=== PATIENT | female | born 1940 | race Two or more races ===

== ENCOUNTER 2017-07-01 20:45 | Inpatient (IN) | payer MEDICARE, MEDICAID ==
[~2017-07-01] VITALS: Ht 157.5 cm; Wt 79.2 kg
[2017-07-01] MEDS ORDERED: OMEP-110 PO (21:19)
[2017-07-01] MEDS ORDERED: ATEN25TA PO (21:19)
[2017-07-01] MEDS ORDERED: HYDR12.53 PO (21:19)
[2017-07-01] MEDS ORDERED: SIMV20TA3 PO (21:19)
[2017-07-01] MEDS ORDERED: LISI-167 PO (21:19)
[2017-07-01] MEDS ORDERED: APIX5TAB PO (21:19)
[2017-07-01] MEDS ORDERED: SODIUM CHLORIDE FLUSH 10ML SYR IVF ONE (21:30)
[2017-07-01] MEDS ORDERED: ONDANSETRON ODT 4 MG ONE (21:33)
[2017-07-01 21:35] LABS: MEAN CORPUSCULAR HGB CONC 32.9 g/dL (32.4-35.8); MEAN CORPUSCULAR VOLUME 91.4 fL (80-100); MEAN PLATELET VOLUME 8.8 fL (7.4-10.4); PLATELET COUNT 315 x10^3/uL (130-400)
[2017-07-01 21:40] LABS: INTERNATIONAL NORMALIZED RATIO 1.05 (0.93-1.1); PROTHROMBIN TIME 10.8 Seconds (9.6-11.5)
[2017-07-01 21:43] LABS: ALANINE AMINOTRANSFERASE 27 U/L (12-78); ALBUMIN 3.9 g/dL (3.4-5.0); ANION GAP 10 mmol/L (5-15); CALCIUM 8.6 mg/dL (8.5-10.1); CHLORIDE 100 mmol/L (98-107); CREATININE 0.86 mg/dL (0.55-1.02)
[2017-07-01 21:47] LABS: BASOPHILS # (AUTO) 0.13 x10^3/uL (0-0.1); BASOPHILS % (AUTO) 1 % (0-1); EOSINOPHILS # (AUTO) 0.23 x10^3/uL (0-0.4); EOSINOPHILS % (AUTO) 1 % (1-7); LYMPHOCYTES # (AUTO) 3.48 x10^3/uL (1-3.4); LYMPHOCYTES % (AUTO) 16 % (22-44); MD SCAN; MONOCYTES # (AUTO) 1.38 x10^3/uL (0.2-0.8); MONOCYTES % (AUTO) 6 % (2-9); NEUTROPHILS # (AUTO) 17.15 x10^3/uL (1.8-6.8); NEUTROPHILS % (AUTO) 77 % (42-75)
[2017-07-01] MEDS ORDERED: LABETALOL 5MG/ML, 20ML ONE (21:47)
[2017-07-01 21:48] LABS: ALKALINE PHOSPHATASE 102 U/L (45-117); BILIRUBIN,TOTAL 0.8 mg/dL (0.2-1.0); TOTAL PROTEIN 8.5 g/dL (6.4-8.2); TROPONIN I < 0.015 ng/mL (0.000-0.045)
[2017-07-01] MEDS ORDERED: ONDANSETRON 2MG/ML, 2ML IVPush ONE (22:00)
[2017-07-01] MEDS ORDERED: LABETALOL 5MG/ML, 20ML IVPush ONE (22:00)
[2017-07-01] MEDS ORDERED: ONDANSETRON ODT 4 MG PO ONE (22:00)
[2017-07-01] MEDS ORDERED: OMNIPAQUE 350 MG/ML, 75ML BOTTLE ONE (22:26)
[2017-07-01] MEDS ORDERED: ACETAMINOPHEN 325 MG TABLET ONE (23:19)
[2017-07-01] MEDS ORDERED: ACETAMINOPHEN 325 MG TABLET PO ONE (23:30)
[2017-07-02] MEDS: SIMVASTATIN 20 MG TABLET PO SCH ×2 (00:30→19:48)
[2017-07-02 01:02] LABS: MICROSCOPIC INDICATED
[2017-07-02 01:13] LABS: CULTURE INDICATED? NO
[2017-07-02] MEDS: HYDROCHLOROTHIAZIDE 12.5 MG CAPSULE PO SCH (09:00)
[2017-07-02] MEDS: OMEPRAZOLE 20 MG CAPSULE.DR PO SCH (09:00)
[2017-07-02] MEDS ORDERED: APIXABAN 5 MG TABLET PO SCH (09:00)
[2017-07-02 09:56] LABS: MEAN CORPUSCULAR HGB CONC 32.9 g/dL (32.4-35.8); MEAN CORPUSCULAR VOLUME 91.2 fL (80-100); MEAN PLATELET VOLUME 8.2 fL (7.4-10.4); PLATELET COUNT 283 x10^3/uL (130-400); RED BLOOD COUNT 4.96 x10^6/uL (3.82-5.3); RED CELL DISTRIBUTION WIDTH 14.4 % (9.6-15.2)
[2017-07-02] MEDS ORDERED: ONDANSETRON ODT 4 MG PO PRN (10:00)
[2017-07-02 10:07] LABS: ANION GAP 8 mmol/L (5-15); CALCIUM 8.1 mg/dL (8.5-10.1); CHLORIDE 100 mmol/L (98-107)
[2017-07-02 10:12] LABS: CREATININE 1.07 mg/dL (0.55-1.02); TROPONIN I < 0.015 ng/mL (0.000-0.045)
[2017-07-02 10:18] LABS: BASOPHILS % (AUTO) 1 % (0-1); EOSINOPHILS % (AUTO) 0 % (1-7); LYMPHOCYTES # (AUTO) 0.62 x10^3/uL (1-3.4); LYMPHOCYTES % (AUTO) 4 % (22-44); MD SCAN; MONOCYTES # (AUTO) 0.43 x10^3/uL (0.2-0.8); MONOCYTES % (AUTO) 3 % (2-9); NEUTROPHILS # (AUTO) 13.67 x10^3/uL (1.8-6.8); NEUTROPHILS % (AUTO) 92 % (42-75)
[2017-07-02 10:30] VITALS: BP 123/78
[2017-07-02] MEDS ORDERED: GADOBUTROL 7.5 MMOL/7.5 ML PFS ONE (11:45)
[2017-07-02] MEDS: LISINOPRIL 10 MG TABLET PO SCH (14:00)
[2017-07-02] MEDS: ATENOLOL 25 MG TABLET PO SCH (14:00)
[2017-07-02 16:01] LABS: TROPONIN I < 0.015 ng/mL (0.000-0.045)
[2017-07-02] MEDS: NS + 20MEQ KCL 1,000 ML IV SCH (20:43)
[2017-07-02] MEDS: SODIUM CHLORIDE FLUSH 10ML SYR IVF SCH (20:44)
[2017-07-02] MEDS ORDERED: MIDAZOLAM 1 MG/ML, 5ML ONE (21:00)
[2017-07-02] MEDS ORDERED: SUCCINYLCHOLINE 20 MG/ML, 10ML ONE (21:00)
[2017-07-03 04:32] LABS: ANION GAP 4 mmol/L (5-15); CALCIUM 8.6 mg/dL (8.5-10.1); CHLORIDE 102 mmol/L (98-107); CREATININE 0.92 mg/dL (0.55-1.02)
[2017-07-03 04:36] LABS: BASOPHILS # (AUTO) 0.01 x10^3/uL (0-0.1); BASOPHILS % (AUTO) 0 % (0-1); EOSINOPHILS # (AUTO) 0.01 x10^3/uL (0-0.4); EOSINOPHILS % (AUTO) 0 % (1-7); LYMPHOCYTES # (AUTO) 0.78 x10^3/uL (1-3.4); LYMPHOCYTES % (AUTO) 6 % (22-44); MD NO; MEAN CORPUSCULAR HEMOGLOBIN 29.7 pg (27.0-34.8); MEAN CORPUSCULAR HGB CONC 32.2 g/dL (32.4-35.8); MEAN CORPUSCULAR VOLUME 92.3 fL (80-100); MEAN PLATELET VOLUME 8.7 fL (7.4-10.4); MONOCYTES # (AUTO) 1.33 x10^3/uL (0.2-0.8); MONOCYTES % (AUTO) 10 % (2-9); NEUTROPHILS # (AUTO) 11.43 x10^3/uL (1.8-6.8); NEUTROPHILS % (AUTO) 84 % (42-75); PLATELET COUNT 266 x10^3/uL (130-400); RED BLOOD COUNT 5.01 x10^6/uL (3.82-5.3); RED CELL DISTRIBUTION WIDTH 14.1 % (9.6-15.2)
[2017-07-03] MEDS ORDERED: METOPROLOL 1 MG/ML, 5ML ONE (07:43)
[2017-07-03] MEDS ORDERED: LIDOCAINE-MPF 1%, 2ML ENDO PRN (08:00)
[2017-07-03] MEDS ORDERED: SODIUM CHLORIDE 0.9%, 500ML IV ONE (08:00)
[2017-07-03] MEDS ORDERED: PHARMACY MAY ADJ FOR RENAL FX MC SCH (08:00)
[2017-07-03] MEDS: ALBUTEROL/IPRATROPIUM 2.5MG/0.5MG, 3 ML INLINE SCH ×5 (08:00→23:17)
[2017-07-03] MEDS ORDERED: BISACODYL 10 MG SUPP PR PRN (08:00)
[2017-07-03] MEDS ORDERED: SENNOSIDES 8.8 MG/5 ML ORAL SOL NG PRN (08:00)
[2017-07-03] MEDS ORDERED: LACTULOSE 20 GM/30 ML UDC NG PRN (08:00)
[2017-07-03] MEDS: SODIUM CHLORIDE FLUSH 10ML SYR IVF SCH ×2 (08:37→19:56)
[2017-07-03] MEDS: PROPOFOL 100 ML IV PRN ×2 (08:44→20:50)
[2017-07-03] MEDS: PANTOPRAZOLE 40 MG IV IV SCH (08:44)
[2017-07-03] MEDS: ATENOLOL 25 MG TABLET PO SCH (09:00)
[2017-07-03] MEDS: HYDROCHLOROTHIAZIDE 12.5 MG CAPSULE PO SCH (09:00)
[2017-07-03] MEDS: OMEPRAZOLE 20 MG CAPSULE.DR PO SCH (09:00)
[2017-07-03] MEDS: LISINOPRIL 10 MG TABLET PO SCH (09:00)
[2017-07-03] MEDS: NS + 20MEQ KCL 1,000 ML IV SCH (10:46)
[2017-07-03] MEDS ORDERED: MIDAZOLAM 1 MG/ML, 2ML ONE (10:48)
[2017-07-03] MEDS ORDERED: FENTANYL PF 100 MCG/2ML ONE (10:48)
[2017-07-03] MEDS ORDERED: BUPIVACAINE/PF 0.5% ONE (10:50)
[2017-07-03] MEDS ORDERED: THROMBIN 5,000 UNIT VIAL TP ONE (10:51)
[2017-07-03] MEDS ORDERED: EPINEPHRINE 1 MG/ML, 1ML ONE (10:51)
[2017-07-03] MEDS ORDERED: BACITRACIN 50,000 UNIT ONE (10:51)
[2017-07-03] MEDS ORDERED: MANNITOL PMX 20% 500 ML ONE (10:55)
[2017-07-03] MEDS ORDERED: niCARDipine 2.5 MG/ML, 10ML ONE (11:01)
[2017-07-03] MEDS ORDERED: NOREPINEPHRINE 1 MG/ML, 4ML ONE (11:01)
[2017-07-03] MEDS ORDERED: ROCURONIUM 10 MG/ML,10ML ONE (11:07)
[2017-07-03] MEDS ORDERED: PROPOFOL 10 MG/ML, 20ML ONE (11:07)
[2017-07-03] MEDS ORDERED: PROPOFOL 10 MG/ML, 50ML ONE (11:07)
[2017-07-03] MEDS ORDERED: CEFAZOLIN 1,000 MG ONE (11:07)
[2017-07-03] MEDS ORDERED: PHENYLEPHRINE 10 MG/ML ONE (11:07)
[2017-07-03] MEDS ORDERED: PROPOFOL 50 ML ONE ×2 (11:32→12:34)
[2017-07-03] MEDS ORDERED: THROMBIN 20,000 UNIT VIAL TP ONE (12:22)
[2017-07-03] MEDS ORDERED: CEFAZOLIN 1,000 MG IM SCH (14:30)
[2017-07-03] MEDS: CEFAZOLIN PMX 1GM/50ML 50 ML IV SCH ×2 (15:54→23:00)
[2017-07-03] MEDS: ENALAPRILAT 1.25 MG/ML, 2ML IVPush PRN ×2 (16:37→22:52)
[2017-07-03] MEDS: FENTANYL PF 100 MCG/2ML IVPush PRN ×3 (16:54→19:55)
[2017-07-03] MEDS: SIMVASTATIN 20 MG TABLET PO SCH (19:52)
[2017-07-03] MEDS: LABETALOL 5MG/ML, 20ML IVPush PRN ×3 (20:50→23:51)
[2017-07-03] MEDS: ACETAMINOPHEN 325 MG TABLET PO PRN (23:27)
[2017-07-04] MEDS: LABETALOL 5MG/ML, 20ML IVPush PRN ×4 (01:38→07:34)
[2017-07-04] MEDS: ACETAMINOPHEN 325 MG TABLET PO PRN ×2 (03:14→20:03)
[2017-07-04] MEDS: ALBUTEROL/IPRATROPIUM 2.5MG/0.5MG, 3 ML INLINE SCH ×6 (03:27→22:22)
[2017-07-04] MEDS: PROPOFOL 100 ML IV PRN (03:55)
[2017-07-04] MEDS: NS + 20MEQ KCL 1,000 ML IV SCH ×2 (03:55→18:29)
[2017-07-04 04:59] LABS: MEAN CORPUSCULAR HGB CONC 32.8 g/dL (32.4-35.8); MEAN CORPUSCULAR VOLUME 91.4 fL (80-100); MEAN PLATELET VOLUME 8.5 fL (7.4-10.4); PLATELET COUNT 206 x10^3/uL (130-400); RED BLOOD COUNT 4.81 x10^6/uL (3.82-5.3); RED CELL DISTRIBUTION WIDTH 14.5 % (9.6-15.2)
[2017-07-04 05:10] LABS: ALANINE AMINOTRANSFERASE 17 U/L (12-78); ALBUMIN 2.4 g/dL (3.4-5.0); ANION GAP 10 mmol/L (5-15); CALCIUM 7.5 mg/dL (8.5-10.1); CHLORIDE 108 mmol/L (98-107)
[2017-07-04] MEDS: ENALAPRILAT 1.25 MG/ML, 2ML IVPush PRN (05:10)
[2017-07-04 05:15] LABS: ALKALINE PHOSPHATASE 62 U/L (45-117); BILIRUBIN,TOTAL 1.1 mg/dL (0.2-1.0)
[2017-07-04 05:37] LABS: MD YES
[2017-07-04 05:39] LABS: <PLATELET ESTIMATE> ADEQUATE; <PLT MORPHOLOGY> NORMAL PLT MORPH; <RBC MORPHOLOGY> NORMAL; BAND#(MANUAL) 2.32 x10^3/uL; BANDS%(MANUAL) 11 % (0-7); LYMPH#(MANUAL) 1.48 x10^3/uL (1-3.4); LYMPHS% (MANUAL) 7 % (22-44); MONOS#(MANUAL) 0.84 x10^3/uL (0.3-2.7); MONOS% (MANUAL) 4 % (2-9); SEG#(MANUAL) 16.46 x10^3/uL (1.8-6.8); SEGS% (MANUAL) 78 % (42-75)
[2017-07-04] MEDS: CEFAZOLIN PMX 1GM/50ML 50 ML IV SCH ×2 (07:41→16:46)
[2017-07-04] MEDS: PANTOPRAZOLE 40 MG IV IV SCH (09:16)
[2017-07-04] MEDS: HYDROCHLOROTHIAZIDE 12.5 MG CAPSULE PO SCH (09:17)
[2017-07-04] MEDS: ATENOLOL 25 MG TABLET PO SCH (09:17)
[2017-07-04] MEDS: SODIUM CHLORIDE FLUSH 10ML SYR IVF SCH ×2 (09:18→20:03)
[2017-07-04] MEDS: LISINOPRIL 10 MG TABLET PO SCH (09:18)
[2017-07-04] MEDS ORDERED: POTASSIUM PHOSPHATE 44 MEQ in SODIUM CHLORIDE 0.9% 500 ML IV ONE (18:00)
[2017-07-04] MEDS: SIMVASTATIN 20 MG TABLET PO SCH (20:03)
[2017-07-04] MEDS: CEFAZOLIN 1,000 MG in DEXTROSE 5% 50 ML IV SCH (23:49)
[2017-07-05] MEDS: FENTANYL PF 100 MCG/2ML IVPush PRN ×2 (00:56→04:51)
[2017-07-05] MEDS: ALBUTEROL/IPRATROPIUM 2.5MG/0.5MG, 3 ML INLINE SCH ×6 (02:55→22:44)
[2017-07-05] MEDS: ENALAPRILAT 1.25 MG/ML, 2ML IVPush PRN (03:06)
[2017-07-05 04:17] LABS: MEAN CORPUSCULAR HEMOGLOBIN 29.6 pg (27.0-34.8); MEAN CORPUSCULAR HGB CONC 32.5 g/dL (32.4-35.8); MEAN PLATELET VOLUME 8.3 fL (7.4-10.4); PLATELET COUNT 216 x10^3/uL (130-400); RED BLOOD COUNT 4.51 x10^6/uL (3.82-5.3); RED CELL DISTRIBUTION WIDTH 14.4 % (9.6-15.2)
[2017-07-05 04:29] LABS: ANION GAP 7 mmol/L (5-15); CALCIUM 7.8 mg/dL (8.5-10.1); CHLORIDE 106 mmol/L (98-107); CREATININE 0.57 mg/dL (0.55-1.02); MD YES
[2017-07-05 04:30] LABS: LYMPH#(MANUAL) 0.83 x10^3/uL (1-3.4); LYMPHS% (MANUAL) 4 % (22-44); MONOS% (MANUAL) 13 % (2-9)
[2017-07-05 04:31] LABS: <PLATELET ESTIMATE> ADEQUATE; <PLT MORPHOLOGY> NORMAL PLT MORPH; <RBC MORPHOLOGY> NORMAL; BAND#(MANUAL) 0.21 x10^3/uL; BANDS%(MANUAL) 1 % (0-7); SEG#(MANUAL) 17.06 x10^3/uL (1.8-6.8); SEGS% (MANUAL) 82 % (42-75)
[2017-07-05] MEDS: NS + 20MEQ KCL 1,000 ML IV SCH ×2 (07:06→21:05)
[2017-07-05] MEDS ORDERED: POTASSIUM PHOSPHATE 44 MEQ in SODIUM CHLORIDE 0.9% 500 ML IV ONE (07:30)
[2017-07-05] MEDS: CEFAZOLIN 1,000 MG in DEXTROSE 5% 50 ML IV SCH ×2 (08:03→16:24)
[2017-07-05] MEDS: PANTOPRAZOLE 40 MG IV IV SCH (08:44)
[2017-07-05] MEDS: SENNA/DOCUSATE TABLET NG PRN ×2 (08:44→20:44)
[2017-07-05] MEDS: ATENOLOL 25 MG TABLET PO SCH (08:45)
[2017-07-05] MEDS: LISINOPRIL 10 MG TABLET PO SCH (08:45)
[2017-07-05] MEDS: HYDROCHLOROTHIAZIDE 12.5 MG CAPSULE PO SCH (08:45)
[2017-07-05] MEDS: SODIUM CHLORIDE FLUSH 10ML SYR IVF SCH ×2 (08:47→20:44)
[2017-07-05] MEDS: AMPICILLIN/SULBACTAM 3 GM in SODIUM CHLORIDE 0.9% 100 ML IV SCH ×2 (09:12→17:08)
[2017-07-05] MEDS: ACETAMINOPHEN 325 MG TABLET PO PRN (17:03)
[2017-07-05] MEDS: SIMVASTATIN 20 MG TABLET PO SCH (20:44)
[2017-07-06] MEDS: CEFAZOLIN PMX 1GM/50ML 50 ML IV SCH ×2 (00:15→08:01)
[2017-07-06] MEDS: AMPICILLIN/SULBACTAM 3 GM in SODIUM CHLORIDE 0.9% 100 ML IV SCH ×3 (01:28→17:19)
[2017-07-06] MEDS: ALBUTEROL/IPRATROPIUM 2.5MG/0.5MG, 3 ML INLINE SCH ×6 (02:21→22:00)
[2017-07-06] MEDS: FENTANYL PF 100 MCG/2ML IVPush PRN ×5 (02:27→22:37)
[2017-07-06 04:36] LABS: MEAN CORPUSCULAR HEMOGLOBIN 29.3 pg (27.0-34.8); MEAN CORPUSCULAR HGB CONC 32.2 g/dL (32.4-35.8); MEAN CORPUSCULAR VOLUME 91.3 fL (80-100); MEAN PLATELET VOLUME 8.8 fL (7.4-10.4); PLATELET COUNT 234 x10^3/uL (130-400); RED BLOOD COUNT 4.48 x10^6/uL (3.82-5.3); RED CELL DISTRIBUTION WIDTH 14.5 % (9.6-15.2)
[2017-07-06 04:45] LABS: ANION GAP 6 mmol/L (5-15); CALCIUM 7.9 mg/dL (8.5-10.1); CHLORIDE 106 mmol/L (98-107); CREATININE 0.45 mg/dL (0.55-1.02); TRIGLYCERIDES 85 mg/dL (50-200)
[2017-07-06 05:41] LABS: BASOPHILS # (AUTO) 0.04 x10^3/uL (0-0.1); BASOPHILS % (AUTO) 0 % (0-1); EOSINOPHILS % (AUTO) 0 % (1-7); LYMPHOCYTES # (AUTO) 1.12 x10^3/uL (1-3.4); LYMPHOCYTES % (AUTO) 6 % (22-44); MD SCAN; MONOCYTES # (AUTO) 1.66 x10^3/uL (0.2-0.8); MONOCYTES % (AUTO) 9 % (2-9); NEUTROPHILS % (AUTO) 85 % (42-75)
[2017-07-06] MEDS: PANTOPRAZOLE 40 MG IV IV SCH (09:33)
[2017-07-06] MEDS: ATENOLOL 25 MG TABLET PO SCH (09:34)
[2017-07-06] MEDS: LISINOPRIL 10 MG TABLET PO SCH (09:34)
[2017-07-06] MEDS: HYDROCHLOROTHIAZIDE 12.5 MG CAPSULE PO SCH (09:34)
[2017-07-06] MEDS: SODIUM CHLORIDE FLUSH 10ML SYR IVF SCH ×2 (09:45→20:21)
[2017-07-06] MEDS: NS + 20MEQ KCL 1,000 ML IV SCH (11:19)
[2017-07-06] MEDS: SIMVASTATIN 20 MG TABLET PO SCH (20:21)
[2017-07-07] MEDS: NS + 20MEQ KCL 1,000 ML IV SCH ×2 (01:47→16:50)
[2017-07-07] MEDS: AMPICILLIN/SULBACTAM 3 GM in SODIUM CHLORIDE 0.9% 100 ML IV SCH ×3 (01:47→16:50)
[2017-07-07] MEDS: ALBUTEROL/IPRATROPIUM 2.5MG/0.5MG, 3 ML INLINE SCH ×6 (02:00→21:13)
[2017-07-07 04:24] LABS: MEAN CORPUSCULAR HEMOGLOBIN 29.5 pg (27.0-34.8); MEAN CORPUSCULAR HGB CONC 32.6 g/dL (32.4-35.8); MEAN CORPUSCULAR VOLUME 90.4 fL (80-100); MEAN PLATELET VOLUME 8.6 fL (7.4-10.4); PLATELET COUNT 247 x10^3/uL (130-400); RED BLOOD COUNT 4.39 x10^6/uL (3.82-5.3); RED CELL DISTRIBUTION WIDTH 13.9 % (9.6-15.2)
[2017-07-07 04:34] LABS: ANION GAP 6 mmol/L (5-15); CALCIUM 8.3 mg/dL (8.5-10.1); CHLORIDE 104 mmol/L (98-107); CREATININE 0.42 mg/dL (0.55-1.02)
[2017-07-07 04:59] LABS: BASOPHILS # (AUTO) 0.04 x10^3/uL (0-0.1); BASOPHILS % (AUTO) 0 % (0-1); EOSINOPHILS # (AUTO) 0.04 x10^3/uL (0-0.4); EOSINOPHILS % (AUTO) 0 % (1-7); LYMPHOCYTES # (AUTO) 1.35 x10^3/uL (1-3.4); LYMPHOCYTES % (AUTO) 8 % (22-44); MD SCAN; MONOCYTES # (AUTO) 1.48 x10^3/uL (0.2-0.8); MONOCYTES % (AUTO) 9 % (2-9); NEUTROPHILS # (AUTO) 13.93 x10^3/uL (1.8-6.8); NEUTROPHILS % (AUTO) 83 % (42-75)
[2017-07-07] MEDS: FENTANYL PF 100 MCG/2ML IVPush PRN (05:55)
[2017-07-07] MEDS: PANTOPRAZOLE 40 MG IV IV SCH (08:19)
[2017-07-07] MEDS: SODIUM CHLORIDE FLUSH 10ML SYR IVF SCH ×2 (08:19→20:33)
[2017-07-07] MEDS: ATENOLOL 25 MG TABLET PO SCH (08:19)
[2017-07-07] MEDS: HYDROCHLOROTHIAZIDE 12.5 MG CAPSULE PO SCH (08:19)
[2017-07-07] MEDS: LISINOPRIL 10 MG TABLET PO SCH (08:20)
[2017-07-07] MEDS: SIMVASTATIN 20 MG TABLET PO SCH (20:33)
[2017-07-08] MEDS: AMPICILLIN/SULBACTAM 3 GM in SODIUM CHLORIDE 0.9% 100 ML IV SCH ×2 (01:26→09:38)
[2017-07-08] MEDS: ALBUTEROL/IPRATROPIUM 2.5MG/0.5MG, 3 ML INLINE SCH ×4 (02:00→14:00)
[2017-07-08 04:24] LABS: MEAN CORPUSCULAR HEMOGLOBIN 29.9 pg (27.0-34.8); MEAN CORPUSCULAR HGB CONC 32.8 g/dL (32.4-35.8); MEAN CORPUSCULAR VOLUME 91.3 fL (80-100); MEAN PLATELET VOLUME 8.6 fL (7.4-10.4); PLATELET COUNT 252 x10^3/uL (130-400); RED BLOOD COUNT 4.29 x10^6/uL (3.82-5.3)
[2017-07-08 04:30] LABS: ANION GAP 6 mmol/L (5-15); CALCIUM 8.4 mg/dL (8.5-10.1); CHLORIDE 102 mmol/L (98-107); CREATININE 0.48 mg/dL (0.55-1.02)
[2017-07-08 05:45] LABS: BASOPHILS # (AUTO) 0.04 x10^3/uL (0-0.1); BASOPHILS % (AUTO) 0 % (0-1); EOSINOPHILS # (AUTO) 0.12 x10^3/uL (0-0.4); EOSINOPHILS % (AUTO) 1 % (1-7); LYMPHOCYTES # (AUTO) 1.73 x10^3/uL (1-3.4); LYMPHOCYTES % (AUTO) 11 % (22-44); MD SCAN; MONOCYTES # (AUTO) 2.08 x10^3/uL (0.2-0.8); MONOCYTES % (AUTO) 13 % (2-9); NEUTROPHILS # (AUTO) 11.89 x10^3/uL (1.8-6.8); NEUTROPHILS % (AUTO) 75 % (42-75)
[2017-07-08] MEDS: SODIUM CHLORIDE FLUSH 10ML SYR IVF SCH (09:37)
[2017-07-08] MEDS: PANTOPRAZOLE 40 MG IV IV SCH (09:37)
[2017-07-08] MEDS: ATENOLOL 25 MG TABLET PO SCH (09:37)
[2017-07-08] MEDS: LISINOPRIL 10 MG TABLET PO SCH (09:37)
[2017-07-08] MEDS: HYDROCHLOROTHIAZIDE 12.5 MG CAPSULE PO SCH (09:37)
[2017-07-08] MEDS ORDERED: morphine SULFATE 10 MG/ML, 1ML ONE (16:17)
[2017-07-08] MEDS ORDERED: LORazepam 2 MG/ML, 1ML ONE (16:18)
[2017-07-08] MEDS ORDERED: LORazepam 2 MG/ML, 1ML IV PRN (16:30)
[2017-07-08] MEDS ORDERED: morphine SULFATE 10 MG/ML, 1ML IV ONE (16:30)
[2017-07-08] MEDS ORDERED: ATROPINE OPHTH SOLN 1%, 2ML PO PRN (16:30)
[2017-07-08] MEDS ORDERED: morphine SULFATE 10 MG/ML, 1ML IV PRN (16:30)
[2017-07-08] MEDS ORDERED: LORazepam 2 MG/ML, 1ML IV ONE (16:30)
== END 2017-07-08 17:46 | disposition expired | DRG 23 ==
LOC: ED 21:41 → EDIP 23:42 → 5SO 07-02 10:47 → CCU 07-02 13:41
PROVIDERS: ADMIT Internal Medicine; ATTEND Internal Medicine
PROC: 5A1955Z Respiratory Ventilation, Greater than 96 Consecutive Hours (ICD-10-PCS; 2017-07-03)
PROC: 0BH18EZ Insertion of Endotracheal Airway into Trachea, Via Natural or Artificial Opening Endoscopic (ICD-10-PCS; 2017-07-03)
PROC: 00U20JZ Supplement Dura Mater with Synthetic Substitute, Open Approach (ICD-10-PCS; 2017-07-03)
PROC: 00NC0ZZ Release Cerebellum, Open Approach (ICD-10-PCS; principal; 2017-07-03 10:45)
DX: I63.9 Cerebral infarction, unspecified (principal); J96.21 Acute and chronic respiratory failure with hypoxia; E43 Unspecified severe protein-calorie malnutrition; G93.6 Cerebral edema; Z99.11 Dependence on respirator [ventilator] status; G93.41 Metabolic encephalopathy; G91.1 Obstructive hydrocephalus; D68.69 Other thrombophilia; E11.9 Type 2 diabetes mellitus without complications; D72.825 Bandemia; J98.11 Atelectasis; G81.91 Hemiplegia, unspecified affecting right dominant side; D72.829 Elevated white blood cell count, unspecified; E78.5 Hyperlipidemia, unspecified; D75.1 Secondary polycythemia; Z68.31 Body mass index [BMI] 31.0-31.9, adult; I11.9 Hypertensive heart disease without heart failure; I48.91 Unspecified atrial fibrillation; J44.9 Chronic obstructive pulmonary disease, unspecified; Z66 Do not resuscitate; Z79.01 Long term (current) use of anticoagulants; Z87.891 Personal history of nicotine dependence; Z99.81 Dependence on supplemental oxygen; K31.89 Other diseases of stomach and duodenum; Z90.49 Acquired absence of other specified parts of digestive tract
CPT/HCPCS: 36415; 36600; 70450; 70551; 70553; 71045; 71260; 74018; 80048; 80053; 81001; 82803; 82805; 82962; 83735; 84100; 84443; 84478; 84484; 85025; 85610; 85730; 87040; 87070; 87081; 87205; 93005; 94002; 94003; 94640; 99285; A9585; C1713; C1729; C8929; J0171; J0295; J0690; J2250; J2704; J3010; J3480; J3490; J7620; Q0162; Q9967; C1781; C9113; J0330; J2060; J2270; J2370; J7040; J7050